=== PATIENT | female | born 1975 | race Caucasian/White ===

== ENCOUNTER 2017-03-04 15:16 | Emergency (ER) | payer SELFPAY ==
[2017-03-04 15:31] LABS: URINE BILIRUBIN NEGATIVE (NEG); URINE BLOOD MODERATE (NEG); URINE GLUCOSE (UA) NEGATIVE (NEG); URINE KETONE NEGATIVE (NEG); URINE LEUKOCYTE ESTERASE POSITIVE (NEG); URINE NITRITE NEGATIVE (NEG); URINE PROTEIN SMALL (NEG)
[2017-03-04 15:32] LABS: URINE COLOR YELLOW
[2017-03-04 15:33] LABS: URINE APPEARANCE HAZY
[2017-03-04 15:37] LABS: URINE BACTERIA 3+; URINE MUCUS 1+
[2017-03-04 15:38] LABS: URINE WBC 40-60 /[HPF] (0-5)
[2017-03-04] MEDS ORDERED: GLUCOPHAGE500 M3 PO (18:11)
[2017-03-04] MEDS ORDERED: LISINOPRIL-HCT1 EAC1 PO (18:12)
[2017-03-04] MEDS ORDERED: PAXIL10 M1 PO (18:13)
[2017-03-04] MEDS ORDERED: VALIUM5 M1 PO (18:14)
[2017-03-04] MEDS ORDERED: KEFLEX500 M4 PO (18:38)
== END 2017-03-04 19:03 ==
LOC: EDMED 15:16
PROVIDERS: Emergency Medicine
DX: N30.00 Acute cystitis without hematuria (principal); R59.0 Localized enlarged lymph nodes; F17.210 Nicotine dependence, cigarettes, uncomplicated; Z98.51 Tubal ligation status

== ENCOUNTER 2017-05-28 04:46 | Observation (INO) | payer BC ==
[~2017-05-28] VITALS: Ht 157.5 cm; Wt 85.9 kg
[~2017-05-28 04:46] MED LIST: GLUCOPHAGE500 M3 PO; KEFLEX500 M4 PO; LISINOPRIL-HCT1 EAC1 PO; PAXIL10 M1 PO; VALIUM5 M1 PO
[2017-05-28 05:26] LABS: BASO % 0.3 % (0-2); EOS % 1.6 % (0-7); HCT-HEMATOCRIT 42.1 % (34.0-49.0); HGB-HEMOGLOBIN 14.3 gm/dl (12.0-15.5); IMMATURE GRANULOCYTES ABSOLUTE 0.02 tho/cmm (0-0.03); IMMATURE GRANULOCYTES PERCENT 0.2 % (0-0.3); LYMPH % 42.9 % (20-45); MCH (MEAN CORPUSCULAR HGB) 32.5 pg (28.0-32.0); MCV (MEAN CELL VOLUME) 95.7 fl (82.0-96.0); MEAN PLATELET VOLUME 9.3 cmc (9.4-12.4); MONO % 5.2 % (0-12); NEUTROPHIL ABSOLUTE COUNT 5.8 tho/cmm (1.6-8.0); NEUTROPHIL-AUTOMATED 5.8 tho/cmm (1.6-8.0); NEUTROPHILS % 49.8 % (40-80); PLATELET COUNT 356 tho/cmm (150-450); RED CELL DISTRIBUTION WIDTH 12.3 % (12.4-16.4); WHITE BLOOD COUNT 11.7 tho/cmm (4.0-10.0)
[2017-05-28 05:30] LABS: EOSINOPHIL ABSOLUTE COUNT 0.2 tho/cmm (0.0-0.7); MONOCYTE ABSOLUTE COUNT 0.6 tho/cmm (0.0-1.2)
[2017-05-28 05:37] LABS: PREGNANCY-SERUM NEGATIVE (NEGATIVE)
[2017-05-28 05:44] LABS: ALB/GLOB RATIO 0.9 (0.8-2.0); ALBUMIN 3.9 g/dl (3.5-5.0); ALKALINE PHOSPHATASE 94 U/L (33-138); ALT/SGPT 26 U/L (12-78); ANION GAP 16 mmol/L (0-20); AST/SGOT 17 U/L (10-40); BILIRUBIN,TOTAL 0.4 mg/dl (0-1.5); BLOOD UREA NITROGEN 5 mg/dl (6-24); CARBON DIOXIDE-VENOUS 22 mmol/L (22-32); CHLORIDE 107 mmol/l (96-110); CREATININE 0.87 mg/dl (0.50-1.10); GLUCOSE 100 mg/dL (70-110); POTASSIUM 3.5 mmol/L (3.7-5.1); SODIUM 141 mmol/L (135-145); eGFR VALUE FOR BLACK >90 mL/Min
[2017-05-28] MEDS ORDERED: ISOSORBIDE MONO30 M4 PO (16:25)
[2017-05-28] MEDS ORDERED: ASPIRIN81 M1 PO (16:26)
[2017-05-28] MEDS ORDERED: PROTONIX40 M2 PO (16:27)
[2017-05-29] MEDS ORDERED: AUGMENTIN 875-1 EAC2 PO (20:27)
== END 2017-05-28 17:18 ==
LOC: EDMED 04:46 → EMR2 09:11 → PCUA 09:11 → EMR2 09:11 → PCUA 11:21
PROVIDERS: Emergency Medicine; ADMIT Internal Medicine Cardiovascular Disease
PROC: B2111ZZ Fluoroscopy of Multiple Coronary Arteries using Low Osmolar Contrast (ICD-10-PCS; principal; 2017-05-28)
DX: I25.110 Atherosclerotic heart disease of native coronary artery with unstable angina pectoris (principal); R94.31 Abnormal electrocardiogram [ECG] [EKG]; I10 Essential (primary) hypertension; E11.9 Type 2 diabetes mellitus without complications; F17.210 Nicotine dependence, cigarettes, uncomplicated; E66.9 Obesity, unspecified; Z68.34 Body mass index [BMI] 34.0-34.9, adult; Z79.899 Other long term (current) drug therapy
CPT/HCPCS: C1751; C1894; J1170; J1644; J2060; J2250; J2270; J3010; J7030; Q9967

== ENCOUNTER 2017-05-29 19:15 | Emergency (ER) | payer BC ==
[~2017-05-29] VITALS: Ht 157.5 cm; Wt 91.0 kg
[~2017-05-29 19:15] MED LIST changes: +ASPIRIN81 M1 PO; +ISOSORBIDE MONO30 M4 PO; +PROTONIX40 M2 PO
[2017-05-29] MEDS ORDERED: AUGMENTIN 875-1 EAC2 PO (20:27)
== END 2017-05-29 21:22 ==
LOC: EDMED 19:15
DX: R51 Headache (principal); R22.1 Localized swelling, mass and lump, neck; F17.200 Nicotine dependence, unspecified, uncomplicated
CPT/HCPCS: J2270